=== PATIENT | male | born 1960 | race Caucasian/White ===

== ENCOUNTER 2019-01-21 10:15 | Day surgery (SDC) | payer BC ==
[~2019-01-21 10:15] MED LIST: Buffered Lidocaine 1% SYRIN* 1 ML/SYRINGE INTRADERM ONE; Dexamethasone IV* 4 MG/ML 1 ML (4 MG) IV SLOW PU ONE; Famotidine IV* 10 MG/ML 2 ML (20 mg) IV ONE; Lactated Ringers 1000 ML Bag* 1,000 ML IV SCH
[2019-01-21] MEDS ORDERED: fentaNYL* 50 MCG/ML 2 ML VIAL (100 MCG VIAL) ONE (10:55)
[2019-01-21] MEDS ORDERED: Lidocaine 2% PF * 5 ML VIAL ONE (10:55)
[2019-01-21] MEDS ORDERED: Propofol* 10 MG/ML 20 ML BTL ONE ×2 (10:55→15:45)
[2019-01-21] MEDS ORDERED: Dexamethasone IV* 4 MG/ML 1 ML (4 MG) ONE (11:00)
[2019-01-21] MEDS ORDERED: Famotidine IV* 10 MG/ML 2 ML (20 mg) ONE (11:00)
[2019-01-21] MEDS ORDERED: ceFAZolin 2 GM PREMIX in ORs 2 GM/50 ML BAG IVPB ONE (11:00)
[2019-01-21] MEDS ORDERED: Bupivacaine 0.25% SDV PF* 10 ML VIAL INJ ONE ×3 (11:08→12:04)
[2019-01-21] MEDS ORDERED: DiMENhydriNATE IV* 50 MG/ML VIAL IV PUSH PRN (11:17)
[2019-01-21] MEDS ORDERED: fentaNYL* 50 MCG/ML 2 ML VIAL (100 MCG VIAL) IV PRN (11:17)
[2019-01-21] MEDS ORDERED: Naloxone* 0.4 MG/ML 1 ML VIAL IV PRN (11:17)
[2019-01-21] MEDS ORDERED: Midazolam* 1 MG/ML 2 ML VIAL (2 MG) ONE (11:21)
[2019-01-21] MEDS ORDERED: Ondansetron INJ* 2 MG/ML VIAL ONE (12:41)
[2019-01-21 13:48] VITALS: BP 135/87
--- NOTE | 2019-01-21 22:26 | OP ---
DATE OF OPERATION: 01/21/19 - [facility] DATE OF : 62 SURGEON: Allen Simon MD. PHYSICAL INTEGRATION PRACTITIONER: JUANITO Garibay. ANESTHESIOLOGIST: Dr. Cali. ANESTHESIA: General. PRE-OP DIAGNOSES: 1. 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 2. 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 OPERATIVE PROCEDURE: 1. Revision of left ring finger amputation through the distal phalanx with excision of the spike nail and germinal matrix and just a little bit of shortening for closure. 2. Revision of left middle finger amputation. ESTIMATED BLOOD LOSS: 1 mL. COMPLICATIONS: None. FINDINGS: See above and below. DESCRIPTION OF PROCEDURE: Loc was seen in the preoperative holding area. The correct side, site, and procedure were identified. We came back to the operating room, where the arm was prepped and draped in the usual fashion and a time-out was performed. I began by performing a digital block on both fingers with 0.25% plain Marcaine. I then placed the Tourni-Cot over the left middle finger. I went ahead and ellipsed out the spike nail where he had that . This was taken all the way back down to bone. The germinal matrix there was excised with the combination of the Glasscock blade and the rongeur. I just nipped back the bone there a little bit just to make sure that I get it closed up nice and the spike nail would not recur. Once I was satisfied everything was cleaned up and I was satisfied with the revision amputation, I went ahead and closed the skin with 4- 0 nylon suture. I then turned my attention to the ring finger, where he had a much larger issue and recurrent infections. I went ahead and excised the area of the large deformed nail spike. As I took this out, it became apparent that pretty much the entirety of the germinal matrix was still in place. I went ahead and used the Glasscock blade to fully excise the germinal matrix, taking it right off the dorsal bone. The terminal extensor tendon was preserved. The curette was used to remove any remnant of the germinal matrix. I had excised the germinal matrix off the undersurface of the nail fold as well. At this point, I could not quite get the palmar flap to come up and close the wound. I had talked to him about potential of doing a full- thickness skin graft; however, I really did not think I would have enough good viable periosteum left for a good skin graft and so, ultimately, I took the bone cutter and just shortened the bone by a couple of millimeters. I was unable to bring the palmar flap up. Any dog ears were excised. The tension was set and the palmar flap was debulked a little bit. I then closed the skin with 4-0 nylon suture. Finger tourniquets had been used on both fingers throughout the case. These were then excised. Finger tips pinked up immediately. The wounds were dressed with Xeroform, some gauze, 1-inch Fly, and 1-inch Coban. He was then taken to the recovery room in stable condition. [id number] #: [id number] ROCÍO
== END 2019-01-21 14:17 | disposition home or self-care (01) ==
LOC: OR 10:15
PROVIDERS: ATTEND Orthopaedic Surgery Hand Surgery
DX: S68.62 Partial traumatic transphalangeal amputation of other and unspecified finger (principal); S68.623S Partial traumatic transphalangeal amputation of left middle finger, sequela; K21.9 Gastro-esophageal reflux disease without esophagitis; Z68.41 Body mass index [BMI] 40.0-44.9, adult; W31.89XS Contact with other specified machinery, sequela; Y92.9 Unspecified place or not applicable
CPT/HCPCS: 88304; J0690; J1100; J2250; J2405; J2704; J3010; J3490